=== PATIENT | male | born 1995 | race American Indian/Alaskan Native ===

== ENCOUNTER 2018-10-12 21:30 | Emergency (ER) | payer SELFPAY ==
--- NOTE | 2018-10-12 21:43 | Event Note ---
ED Screening Note Date of service: 10/12/18 Time: 21:42 ED Screening Note: 23 y o female presents with throat pain x thursday This initial assessment/diagnostic orders/clinical plan/treatment(s) is/are subject to change based on patients health status, clinical progression and re- assessment by fellow clinical providers in the ED. Further treatment and workup at subsequent clinical providers discretion. Patient/guardian urged not to elope from the ED as their condition may be serious if not clinically assessed and managed. Initial orders include: rapid strep
[2018-10-12] MEDS ORDERED: IBUPROFEN PO ONE (23:31)
[2018-10-12] MEDS ORDERED: BICILLIN L-A IM ONE (23:31)
[2018-10-12] MEDS ORDERED: DECADRON IM ONE (23:34)
--- NOTE | 2018-10-12 23:35 | Emergency Department Report ---
Minor Respiratory - HPI Chief Complaint: Sore Throat Stated Complaint: THROAT PAIN Time Seen by Provider: 10/12/18 21:42 Duration: 3 Days Pain Location: Throat Severity: moderate Minor Respiratory: Yes Sore Throat, Yes Able to Tolerate Fluids, Yes Fever, No Rhinorrhea, No Ear Pain, No Cough, No Sick Contacts, No Hemoptysis, No Chest Pain, No Shortness of Breath Other History: 23 yo AA male with sorethroat. Pos chills. Did not take temp. Did not take anything at home. Has not seen pcp. no cough. no n/v/d. vss. abc intact. taking po. ED Review of Systems ROS: Stated complaint: THROAT PAIN Other details as noted in HPI Comment: All other systems reviewed and negative ED Past Medical Hx - Past Medical History Previous Medical History?: No - Surgical History Past Surgical History?: No - Social History Smoking Status: Never Smoker Substance Use Type: None - Medications Home Medications: Home Medications Medication Instructions Recorded Confirmed Last Taken Type Sulfamethoxazole/Trimethoprim 1 each PO BID #20 tablet 02/08/14 Unknown Rx [Bactrim Ds] cephALEXin [Keflex] 500 mg PO QID #40 capsule 02/08/14 Unknown Rx traMADol [Ultram 50 MG tab] 50 mg PO Q6HR PRN #10 tablet 02/08/14 Unknown Rx Amoxicillin [Trimox CAP] 500 mg PO TID #30 capsule 10/12/18 Unknown Rx Minor Respiratory Exam - Exam General: Vital signs noted. No distress. Alert and acting appropriately. HEENT: Yes Pharyngeal Erythema, Yes Pharyngeal Exudates, Yes Moist Mucous Membranes, No Rhinorrhea Neck: Yes Supple, No Adenopathy Lungs: Yes Good Air Exchange, No Wheezes Heart: Yes Regular Neurologic: Alert and oriented, no deficits. Musculoskeletal: Unremarkable. ED Course Vital Signs 10/12/18 21:36 Temperature 100.8 F H Pulse Rate 100 H Respiratory 18 Rate Blood Pressure 129/78 O2 Sat by Pulse 98 Oximetry ED Medical Decision Making - Medical Decision Making rapid strep neg medicated in ER abc intact vss dc home with dc plan of care Lab Results 10/12/18 Range/Units 21:55 Group A Strep Rapid Negative (Negative) Vital Signs 10/12/18 21:36 Temperature 100.8 F H Pulse Rate 100 H Respiratory 18 Rate Blood Pressure 129/78 O2 Sat by Pulse 98 Oximetry Critical care attestation.: If time is entered above; I have spent that time in minutes in the direct care of this critically ill patient, excluding procedure time. ED Disposition Clinical Impression: Exudative pharyngitis Disposition: - TO HOME OR SELFCARE Is pt being admited?: No Does the pt Need Aspirin: No Condition: Stable Instructions: Pharyngitis (ED) Additional Instructions: meds as ordered today until gone motrin or tylenol for pain or fever hydrate well with water Referrals: KARAN NASCIMENTO MD [Primary Care Provider] - 3-5 Days Time of Disposition: 23:33
[2018-10-13 01:01] VITALS: BP 128/63
== END 2018-10-13 00:45 | disposition home or self-care (01) ==
LOC: ED 21:30
DX: J02.9 Acute pharyngitis, unspecified (principal); R50.9 Fever, unspecified; Z79.899 Other long term (current) drug therapy
CPT/HCPCS: 87116; 87430; 96372; 99283; J0561; J1100

== ENCOUNTER 2021-05-02 22:42 | Emergency (ER) | payer SELFPAY ==
[2021-05-02 23:34] LABS: Basophils % (Auto) 0.8 % (0.0-1.8); Eosinophils # (Auto) 0.1 K/mm3 (0.0-0.4); Lymphocytes # (Auto) 2.2 K/mm3 (1.2-5.4); Lymphocytes % (Auto) 38.1 % (13.4-35.0); Mean Corpuscular HGB Conc 37 % (32-34); Mean Corpuscular Volume 92 fl (84-94); Monocytes # (Auto) 0.4 K/mm3 (0.0-0.8); Monocytes % (Auto) 6.6 % (0.0-7.3); Red Blood Count 4.72 M/mm3 (3.65-5.03); Red Cell Distribution Width 13.7 % (13.2-15.2)
[2021-05-02 23:50] LABS: Bilirubin,Urine NEG (Negative); Blood,Urine NEG (Negative); Color,Urine Yellow (Yellow); Mucus,Urine FEW /HPF; Protein,Urine <15 mg/dL mg/dL (Negative); RBC,Urine < 1.0 /HPF (0.0-6.0); Urobilinogen,Urine < 2.0 mg/dL (<2.0)
[2021-05-02 23:50] LABS: Alanine Aminotransferase 15 units/L (7-56); Albumin 4.1 g/dL (3.9-5); BUN/Creatinine Ratio 13; Blood Urea Nitrogen 12 mg/dL (9-20); Calcium 9.3 mg/dL (8.4-10.2); Hematocrit 43.2 % (35.5-45.6); Hemoglobin 15.8 gm/dl (11.8-15.2); Hemolysis Index 327
[2021-05-02 23:51] LABS: Platelet Count 224 K/mm3 (140-440)
[2021-05-03 02:26] VITALS: BP 111/69
--- NOTE | 2021-05-03 02:27 | XRay Report ---
ABDOMEN 2 VIEW(S) INDICATION / CLINICAL INFORMATION: abdominal pain 4 days no bm. COMPARISON: None available. FINDINGS: TUBES / LINES: None. BOWEL GAS PATTERN: Moderate stool diffusely. No impaction. No free air or suspicious calcification. ADDITIONAL FINDINGS: No significant additional findings. IMPRESSION: Moderate colonic stool. Signer Name: Dimitrios Rhodes MD Signed: 05/03/2021 2:23 AM Workstation Name: [id number]
--- NOTE | 2021-05-03 02:35 | Emergency Department Report ---
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 The patient states that he has not had a bowel movement for approximately 4 days. He denies a history of prior abdominal surgery and also denies a history of constipation. His appetite is apparently good. He also denies weight loss. MD Complaint: abdominal pain -: Sudden Location: LUQ Radiation: none Migration to: no migration Severity scale (0 -10): 6 Quality: cramping, sharp Context: other (Patient's last BM was approximately 4 days ago) - Related Data Previous Rx's Medication Instructions Recorded Last Taken Type Sulfamethoxazole/Trimethoprim 1 each PO BID #20 tablet 02/08/14 Unknown Rx [Bactrim Ds] cephALEXin [Keflex] 500 mg PO QID #40 capsule 02/08/14 Unknown Rx traMADoL [Ultram 50 MG tab] 50 mg PO Q6HR PRN #10 tablet 02/08/14 Unknown Rx Amoxicillin [Trimox CAP] 500 mg PO TID #30 capsule 10/12/18 Unknown Rx Docusate Sodium [Colace] 100 mg PO BID PRN #30 capsule 05/03/21 Unknown Rx Ketorolac [Toradol] 10 mg PO Q6H PRN #14 tab 05/03/21 Unknown Rx Allergies Allergy/AdvReac Type Severity Reaction Status Date / Time No Known Allergies Allergy Verified 10/12/18 21:32 ED Review of Systems ROS: Stated complaint: SHARP ABD PAIN/CONSTIPATION Other details as noted in HPI ED Past Medical Hx - Past Medical History Previous Medical History?: No - Surgical History Past Surgical History?: No - Social History Smoking Status: Current Every Day Smoker - Medications Home Medications: Home Medications Medication Instructions Recorded Confirmed Last Taken Type Sulfamethoxazole/Trimethoprim 1 each PO BID #20 tablet 02/08/14 Unknown Rx [Bactrim Ds] cephALEXin [Keflex] 500 mg PO QID #40 capsule 02/08/14 Unknown Rx traMADoL [Ultram 50 MG tab] 50 mg PO Q6HR PRN #10 tablet 02/08/14 Unknown Rx Amoxicillin [Trimox CAP] 500 mg PO TID #30 capsule 10/12/18 Unknown Rx Docusate Sodium [Colace] 100 mg PO BID PRN #30 capsule 05/03/21 Unknown Rx Ketorolac [Toradol] 10 mg PO Q6H PRN #14 tab 05/03/21 Unknown Rx ED Physical Exam - General Limitations: No Limitations ED Course Vital Signs 05/02/21 05/03/21 05/03/21 22:50 00:44 01:01 Temperature 98.9 F Pulse Rate 78 65 61 Respiratory 20 13 25 H Rate Blood Pressure 144/75 117/66 Blood Pressure 133/75 [Left] O2 Sat by Pulse 97 99 99 Oximetry 05/03/21 02:00 Temperature Pulse Rate 63 Respiratory 18 Rate Blood Pressure 111/69 Blood Pressure [Left] O2 Sat by Pulse 98 Oximetry ED Medical Decision Making - Lab Data Result diagrams: 05/02/21 23:01 05/02/21 23:01 - Radiology Data Radiology results: report reviewed I personally reviewed the x-ray as well as reviewed the reading by the radiologist. This was consistent with a moderate amount of stool in the colon consistent with constipation. Critical care attestation.: If time is entered above; I have spent that time in minutes in the direct care of this critically ill patient, excluding procedure time. ED Disposition Clinical Impression: Constipation by delayed colonic transit Disposition: HOME / SELF CARE / HOMELESS Is pt being admited?: No Does the pt Need Aspirin: No Condition: Stable Instructions: Constipation, Adult Additional Instructions: Drink plenty of fluids and take the medications as prescribed return to the emergency department if any problems. You should use a fleets enema which can be purchased [id number]. Follow-up with your primary physician or return to the emergency department if your symptoms worsen. If you develop fever with nausea and vomiting. Prescriptions: Docusate Sodium [Colace] 100 mg PO BID PRN #30 capsule PRN Reason: Constipation Ketorolac [Toradol] 10 mg PO Q6H PRN #14 tab PRN Reason: Pain Referrals: CHAD REED MD [Primary Care Provider] - 3-5 Days Forms: Work/School Release Form(ED)
== END 2021-05-03 02:58 | disposition home or self-care (01) ==
LOC: ED 22:42
DX: K59.09 Other constipation (principal); F17.200 Nicotine dependence, unspecified, uncomplicated
CPT/HCPCS: 36415; 74019; 80053; 81001; 83690; 85025; 99283; 99284